=== PATIENT | male | born 1975 | race Caucasian/White ===

== ENCOUNTER 2018-02-23 16:08 | Emergency (ER) | payer OTHER, BC ==
[~2018-02-23] VITALS: Ht 177.8 cm; Wt 118.2 kg
[2018-02-23 16:16] VITALS: BP 129/80; TEMP 98.1
[2018-02-23] MEDS ORDERED: FLEXERIL 1010 MG/TAB PO (17:04)
[2018-02-23 17:12] VITALS: PULSE 86
== END 2018-02-23 17:12 | disposition home or self-care (01) ==
LOC: COL.ER 16:08
DX: S16.1XXA Strain of muscle, fascia and tendon at neck level, initial encounter (principal); R40.2412 Glasgow coma scale score 13-15, at arrival to emergency department; K21.9 Gastro-esophageal reflux disease without esophagitis; F17.200 Nicotine dependence, unspecified, uncomplicated; V43.52XA Car driver injured in collision with other type car in traffic accident, initial encounter